=== PATIENT | female | born 1975 | race Caucasian/White ===

== ENCOUNTER 2016-10-07 15:27 | Emergency (ER) | payer OTHER ==
[2016-10-07] MEDS ORDERED: NUBAIN IM ONE (16:56)
[2016-10-07] MEDS ORDERED: PHENERGAN IM ONE (16:56)
--- NOTE | 2016-10-07 16:58 | PROVIDER DOCUMENTATION ---
HPI-Headache - General Chief Complaint: Headache Stated Complaint: MIGRAINE HEADACHE Time Seen by Provider: 10/07/16 16:52 Source: patient, family Allergies/Adverse Reactions: Patient Allergies Allergy/AdvReac Type Severity Reaction Status Date / Time No Known Allergies Allergy Verified 10/07/16 17:16 Home Medications: Home Medication List Medication Instructions Recorded Confirmed Last Taken Type Fluoxetine HCl [Prozac] 10 mg PO DAILY 10/07/16 10/07/16 10/06/16 History Sumatriptan [Imitrex] 25 mg PO PRN PRN 10/07/16 10/07/16 10/07/16 History Topiramate [Topamax] 200 mg PO DAILY 10/07/16 10/07/16 10/07/16 History - History of Present Illness-Headache Nature of Presenting Problem: 40 year old WF presents alone with c/o headache, onset this morning at 0200, it awoke her from sleep. the pain is left posterior side of her head and radiates to left eyebrow, dull, constant, with associated nausea, chills, and blurred vision to the left eye. pt reports a history of migraine BURR's since the age of 13. she reports this is her regular migraine without new signs/symptoms. pt reports she takes imitrex at home and this usually will resolve the headache. she reports taking the oral and injectable without relief. pt reports she just moved to this area and does not have a PMD. Headache Location: reports: parietal (left) Quality of Pain: reports: aching, dull Severity: reports: mild Onset/Duration: reports: 4-6 hours ago Timing: reports: still present, constant, getting worse Headache Context: reports: nothing. denies: head injury Headache History: reports: frequent headaches, history of migraines Any recent trauma/injury?: reports: none. denies: minor, major, to head, to neck Headache severity at the maximum: moderate Preceding Symptoms: reports: visual disturbances. denies: scotoma, aura(s), typical of previous aura(s) Headache Exacerbated by:: reports: light, noise, movement, position Modifying Factors: improves with: nothing. worse with: analgesics Associated Symptoms: reports: fever/chills, nausea, vision changes. denies: dizziness, confusion, fatigue, loss of consciousness, numbness in legs/feet, paresthesia, seizures, sleepy, slurred speech, trouble walking, vomiting, weakness Similar Symptoms Previously?: Yes Recently seen or treated by another doctor?: No Review of Systems - Adult - REVIEW OF SYSTEMS - ADULT Constitutional: reports: no symptoms reported. denies: chills, fever, fatique Eyes: reports: see HPI, blurred vision (left). denies: discharge, decreased vision, double vision, eye pain Ears, Nose, Mouth & Throat: reports: no symptoms reported. denies: ear discharge, ear pain, nose pain, loose teeth, throat pain, throat swelling Cardiovascular: reports: no symptoms reported. denies: chest pain, palpitations , syncope Respiratory: reports: no symptoms reported. denies: chronic cough, cough, shortness of breath, wheezing Gastrointestinal: reports: no symptoms reported. denies: abdominal pain, diarrhea, nausea, vomiting Genitourinary: reports: no symptoms reported. denies: dysuria, hematuria, urgency Musculoskeletal: reports: no symptoms reported. denies: bone pain, joint pain, joint swelling, neck pain Integumentary: reports: no symptoms reported. denies: hives, rash, skin sores/ ulcer Neurological: reports: see HPI, headache/migraines. denies: ataxia, dizziness/ vertigo, loss of balance, numbness, paresthesia, seizure, slurred speech, syncope, tremors Psychiatric: reports: see HPI, depression Endocrine: reports: no symptoms reported Hematologic/Lymphatic: reports: no symptoms reported Allergic/Immunologic: reports: no symptoms reported All Other Systems: Reviewed and Negative Past History - Adult - PAST MEDICAL HISTORY-ADULT Review of Records: reports: Old Records Reviewed, Nursing Assessment Review, Medications Reviewed, Social history reviewed & non-contributory. Major Childhood Illnesses: reports: denies history Cardiovascular: reports: denies history Respiratory: reports: denies history Gastrointestinal: reports: denies history Obstetrical/Gynecological: reports: denies history Genitourinary: reports: denies history Musculoskeletal: reports: denies history Neurological: reports: headaches/migraines Endocrine/Immune: reports: denies history Other Conditions: reports: denies history - FAMILY HISTORY Family History: reviewed, not pertinent - SOCIAL HISTORY Smoking: denies, quit greater than 1 year, cigarettes Substance Use: none/never Alcohol Use Frequency: never Physical Exam- Neurological - Physical Exam-Neuro Initial Vital Signs Reviewed: Yes General Appearance: appears well, alert, mild distress. negative: no apparent distress, moderate distress, severe distress, lethargic, slow to respond, obtunded, combative Eye Exam: bilateral eye: normal inspection, PERRL, EOMI HENMT: normocephalic/atraumatic, moist mucous membranes, normal ENT inspection, TMs normal, pharynx normal. negative: pharyngeal erythema, tonsillar exudate, TM abnormal, TM obscurred by cerumen, frontal tenderness, maxillary tenderness Head Injury: no evidence of injury. negative: active bleeding, Wang's Sign, contusions, ecchymosis, flap, lacerations, raccoon eyes, swelling, tenderness Neck: non-tender, full range of motion, supple, normal inspection. negative: C- spine tenderness, limited range of motion, tender lateral, tender midline Respiratory: chest non-tender, lungs clear, normal breath sounds, no pleuratic chest pain, no respiratory distress, no accessory muscle use. negative: respiratory distress, decreased breath sounds, accessory muscle use, crackles, rales, rhonchi, stridor, wheezing Cardiovascular: normal peripheral pulses, regular rate, rhythm Abdominal Exam: normal bowel sounds, non tender, soft Lymphatic: no adenopathy. negative: cervical node tenderness Peripheral Pulses: radial (R): 3+, radial (L): 3+, dorsalis-pedis (R): 3+, dorsalis-pedis (L): 3+ Extremity: normal range of motion, non-tender, normal gait, normal inspection, no pedal edema, no calf tenderness, normal capillary refill cotton weigher Exam: normal hearing, normal speech, PERRL. negative: abnormal eye position , abnormal gag reflex, abnormal pupil position, abnormal speech, facial asymmetry, facial droop, facial paresthesias, facial weakness, gaze palsy, tongue deviation to R, tongue deviation to L Coordination/Gait: normal gait, negative Romberg's sign. negative: positive Romberg's sign, abnormal gait Motor/Sensory: no motor deficit, no sensory deficit, no pronator drift. negative: pronator drift (R), pronator drift (L), sensory deficit, weak motor strength RUE, weak motor strength LUE, weak motor strength RLE, weak motor strength LLE Neurologic: cotton weigher II-XII nml as tested, grossly normal, no motor/sensory deficits , negative romberg's sign. negative: abnormal cerebellar tests, abnormal cotton weigher II -XII, abnormal gait, aphasia, EOM palsy, facial droop, focal weakness, motor weakness, sensory deficit, positive romberg's sign Integumentary: normal color, normal turgor. negative: petechiae, purpura, rash Psych/Mental Status: normal mood/affect, normal thought content, normal thought process, oriented x 3 - Glascow Coma Scale Best Eye Response: (4) open spontaneously Best Verbal Response: (5) oriented Best Motor Response: (6) obeys commands Total Glascow Score: 15 Progress - PLAN OF CARE/RESULTS Progress/Plan/Lab Results: Orders Category Date Time Status HEAD W/O CONTRAST [CT] Stat Exams 10/07/16 16:56 Draft Diphenhydramine [Benadryl] Med 10/07/16 18:25 Discontinued 50 mg IM NOW ONE Nalbuphine [Nubain] Med 10/07/16 16:56 Discontinued 20 mg IM NOW ONE Promethazine [Phenergan] Med 10/07/16 16:56 Discontinued 25 mg IM NOW ONE Vital Signs - 24 hr 10/07/16 10/07/16 15:47 18:49 Temperature 98.1 F Pulse Rate 81 72 Respiratory 18 16 Rate Blood Pressure 117/61 115/72 O2 Sat by Pulse 100 100 Oximetry - CT/MRI 1 CT Study: Head Impression: Normal Departure - Departure Time of Disposition Order: 18:20 DIAGNOSIS: Migraine Qualifiers: Migraine type: unspecified Status migrainosus presence: without status migrainosus Intractability: not intractable Qualified Code(s): G43.909 - Migraine, unspecified, not intractable, without status migrainosus Disposition: HOME 01 Certified Medical Emergency: Emergent Condition: Stable Additional Instructions: Referral to Dr. Luu for primary care and Dr. Hernandez for your migraine headaches. ED Follow Up Instructions: You have been treated by a care provider in the Emergency Department. These instructions are being provided to you so you can have an understanding of how to care for yourself upon discharge. Upon discharge from the Emergency Department, you are responsible for making arrangements for follow-up care by a physician of your choice. Take all prescribed medications as directed. Return to the Emergency Department immediately for any new or worsening symptoms. You may call the Physician Referral phone number at [phone] to obtain a list of Physicians who are taking new patients. Referrals: None,PCP [Primary Care Provider] - Maritza Luu MD [STAFF PHYSICIAN] - Gab Hernandez III, MD [STAFF PHYSICIAN] - Forms: Return to School/Parent Work Instructions: Migraine Headache Attestation - Physician/ FAYE Attestation Patient care was provided by Advanced Practice Provider:: Yes Advanced Practice Provider:: Leila Rivera Advanced Practice Provider documentation review:: The Mid-level provider documentation, treatment plan and medical decision making was reviewed by the physician who agrees with all treatment and medical decision making by the MLP.
[2016-10-07] MEDS ORDERED: BENADRYL IM ONE (18:25)
[2016-10-07 18:50] VITALS: BP 115/72
--- NOTE | 2016-10-08 08:03 | Diag Imaging Result Document ---
PROCEDURE NAME: HEAD W/O CONTRAST - 10/07/2016 CT BRAIN WITHOUT CONTRAST. DOSE REDUCTION PROTOCOL: FINDINGS: No parenchymal hemorrhage. No epidural or subdural hematoma. No subarachnoid hemorrhage. No mass identified on this noncontrasted exam. No hydrocephalus. No sinus opacification. IMPRESSION: No hemorrhage. Negative brain CT without contrast. A preliminary report was given at 5:59 p.m.
== END 2016-10-07 18:50 | disposition home or self-care (01) ==
LOC: ED 15:27
DX: G43.909 Migraine, unspecified, not intractable, without status migrainosus (principal); R51 Headache; R50.9 Fever, unspecified; R11.0 Nausea; H53.8 Other visual disturbances; H53.9 Unspecified visual disturbance; F32.9 Major depressive disorder, single episode, unspecified; Z87.891 Personal history of nicotine dependence; Z79.899 Other long term (current) drug therapy
CPT/HCPCS: 70450; J1200; J2300; J2550

== ENCOUNTER 2018-09-26 13:08 | Inpatient (IN) ==
[2018-09-26] MEDS ORDERED: NICODERM PATCH TD PRN (13:49)
[2018-09-26] MEDS ORDERED: SENOKOT PO PRN (13:49)
[2018-09-26] MEDS ORDERED: SINEMET 25/100 PO PRN (13:49)
[2018-09-26] MEDS ORDERED: DESYREL PO PRN (13:49)
[2018-09-26] MEDS ORDERED: MAALOX PLUS LIQUID PO PRN (13:49)
[2018-09-26] MEDS ORDERED: D5W 1,000 ML IV PRN (13:49)
[2018-09-26] MEDS ORDERED: TUBERSOL ID ONE (13:49)
[2018-09-26] MEDS ORDERED: MOTRIN PO PRN (13:49)
[2018-09-26] MEDS ORDERED: PHENOBARBITAL IV PRN (13:49)
[2018-09-26] MEDS ORDERED: BENTYL PO PRN (13:49)
[2018-09-26] MEDS ORDERED: TYLENOL PO PRN (13:49)
[2018-09-26] MEDS ORDERED: DULCOLAX PR PRN (13:49)
[2018-09-26] MEDS ORDERED: IMODIUM PO PRN (13:49)
[2018-09-26 15:02] LABS: HEMATOCRIT 38.6 % (37.0-47.0); HEMOGLOBIN 12.6 g/dL (12.0-16.0); MCH 27.3 PG (27-31); MCHC 32.6 g/dL (33-37); MCV 83.7 FL (81-99); MPV 10.7 FL (7.4-10.4); RBC 4.61 XMIL (4.2-5.4); RDW 12.8 % (11.5-14.5); WBC 6.07 X1000 (4.8-10.8)
[2018-09-26 15:30] LABS: INR 0.92; PROTIME 12.8 Seconds (11.0-16.0)
[2018-09-26 15:35] LABS: AMYLASE 34 U/L (20-200); LIPASE 30 U/L (13-60)
[2018-09-26 15:37] LABS: AGAP 11; ALBUMIN 4.2 g/dL (3.5-5.0); ALKALINE PHOSPHATASE 77 U/L (32-104); BUN 6 mg/dL (8-22); CALCIUM 8.7 mg/dL (8.8-10.2); CHLORIDE 104 mmol/L (98-107); COSMO 278; CREATININE 0.7 mg/dL (0.5-0.9); ESTIMATED GFR > 60; GLUCOSE 90 mg/dL (70-104); GOT 12 U/L (10-30); GPT 8 U/L (10-36); SODIUM 141 mmol/L (136-145); TCO2 27 mmol/L (25-35); TOTAL PROTEIN 6.9 g/dL (6.3-8.3)
[2018-09-26] MEDS: ATARAX PO PRN (16:45)
[2018-09-26] MEDS: LIBRIUM PO PRN ×2 (16:45→21:37)
[2018-09-26] MEDS: ROBAXIN PO PRN (21:37)
[2018-09-26] MEDS: SEROQUEL PO PRN (21:37)
[2018-09-27 01:24] LABS: URINE SOURCE VOIDED
[2018-09-27 01:43] LABS: BILIRUBIN URINE NEGATIVE (NEGATIVE); BLOOD URINE NEGATIVE (NEGATIVE); CLARITY CLEAR (CLEAR); COLOR YELLOW; GLUCOSE URINE NEGATIVE (NEGATIVE); KETONE URINE NEGATIVE (NEGATIVE); LEUKOCYTES URINE TRACE (NEGATIVE); NITRITE URINE NEGATIVE (NEGATIVE); PROTEIN URINE NEGATIVE (NEGATIVE); UROBILINOGEN URINE NORMAL
[2018-09-27 01:50] LABS: URINE BACTERIA 4+ /HFP; URINE EPITHELIAL CELLS <10 /HPF (<10); URINE RBC <10 /HPF (<10); URINE WBC <10 /HPF (<10)
[2018-09-27 01:52] LABS: UR AMPHETAMINES QUAL NONE DETECTED (NONE DETECT); UR BARBITUATES QUAL NONE DETECTED (NONE DETECT); UR BENZODIAZEPIN QUAL PRESUMPTIVE POSITIVE (NONE DETECT); UR CANNABINOIDS QUAL NONE DETECTED (NONE DETECT); UR COCAINE QUAL NONE DETECTED (NONE DETECT); UR METHADONE QUAL NONE DETECTED (NONE DETECT); UR METHAMPHETAMINE QUAL NONE DETECTED (NONE DETECT); UR OPIATES QUAL NONE DETECTED (NONE DETECT); UR OXYCODONE QUAL NONE DETECTED (NONE DETECT); UR PCP QUAL NONE DETECTED (NONE DETECT); UR PROPOXYPHENE QUAL NONE DETECTED (NONE DETECT); UR TCA QUAL PRESUMPTIVE POSITIVE (NONE DETECT)
[2018-09-27] MEDS: PROTONIX PO SCH ×2 (06:42→08:30)
[2018-09-27] MEDS: ZOFRAN IV PRN ×2 (08:30→22:49)
[2018-09-27] MEDS: VITAMIN B-1 PO SCH (08:30)
[2018-09-27] MEDS: THERA M PLUS PO SCH (08:30)
[2018-09-27] MEDS: FOLIC ACID PO SCH (08:30)
[2018-09-27] MEDS: SUBOXONE 2 MG/0.5 MG FILM SL SCH ×2 (08:34→20:38)
[2018-09-27] MEDS: ATARAX PO PRN (13:44)
[2018-09-27] MEDS: LIBRIUM PO PRN (18:09)
--- NOTE | 2018-09-27 18:17 | PROGRESS NOTE ---
DATE: 09/27/2018 SUBJECTIVE: Patient notes that she is feeling a little bit better. Still does not feel well. Still having muscle aches and myalgias. Still having some nausea and sweating. PHYSICAL EXAMINATION: Vital Signs: Reviewed and stable. General: She is awake, alert. She is in no current distress. HEENT: Normocephalic. Neck: Supple. Cardiovascular: Regular rate. Chest: Clear. Abdomen: Soft. Extremities: Moves all extremities. ASSESSMENT: 1. Nausea and vomiting. 2. Abdominal pain. 3. Myalgias. 4. Paresthesias. 5. Opiate abuse withdrawal and stabilization. 6. Chronic migraines. 7. Posttraumatic stress disorder. 8. Fibromyalgia. 9. Opiate abuse withdrawal and stabilization. PLAN: We will continue patient on fentanyl patch. We will add Subutex twice a day today. Once we get her under control, then we can begin weaning down and hopefully off Subutex. I certainly feel as though the manic depressive-type symptoms had more to do with her hallucinations and psychiatric symptoms when she stops than the actual stopping of fentanyl created. We will continue to follow. cc: Eriberto Dash MD MTDD
[2018-09-27] MEDS: SEROQUEL PO PRN (20:38)
[2018-09-27] MEDS: WELLBUTRIN XL PO SCH (20:38)
[2018-09-27] MEDS: LEXAPRO PO SCH (20:38)
[2018-09-27] MEDS: ZOFRAN ODT PO PRN (23:06)
[2018-09-28] MEDS: PROTONIX PO SCH (07:14)
[2018-09-28] MEDS: THERA M PLUS PO SCH (09:26)
[2018-09-28] MEDS: SUBOXONE 2 MG/0.5 MG FILM SL SCH ×2 (09:26→21:35)
[2018-09-28] MEDS: FOLIC ACID PO SCH (09:26)
[2018-09-28] MEDS: VITAMIN B-1 PO SCH (09:26)
[2018-09-28] MEDS: ZOFRAN ODT PO PRN (09:26)
[2018-09-28] MEDS: ZOFRAN IV PRN ×3 (11:17→21:36)
[2018-09-28] MEDS: ROBAXIN PO PRN (14:52)
[2018-09-28] MEDS ORDERED: TORADOL IV ONE (18:37)
[2018-09-28] MEDS: LEXAPRO PO SCH (21:35)
[2018-09-28] MEDS: WELLBUTRIN XL PO SCH (21:35)
[2018-09-28] MEDS: SEROQUEL PO PRN (21:35)
[2018-09-29] MEDS: ATARAX PO PRN ×2 (00:01→09:48)
[2018-09-29] MEDS: ROBAXIN PO PRN ×2 (01:00→13:46)
[2018-09-29] MEDS: ZOFRAN IV PRN ×6 (01:00→22:38)
[2018-09-29] MEDS: PROTONIX PO SCH (06:40)
--- NOTE | 2018-09-29 08:09 | PROGRESS NOTE ---
DATE: 09/28/2018 SUBJECTIVE: Patient seen and examined by myself on the . She notes that overall she is feeling a little bit better, although still having muscle aches, still feels as though she is having withdrawal symptoms. She did have a migraine today which is not uncommon. Denies any hallucinations. OBJECTIVE: Vital Signs: Temperature 97.4, pulse 70s, respiratory 20, BP 90 systolic. General: Patient is awake, alert, currently in no respiratory distress. HEENT: Normocephalic. Neck: Supple. CV: Regular rate. Chest: Clear. Abdomen: Soft. Extremities: Moves all extremities. Neurologic: No changes. ASSESSMENT: 1. Nausea, vomiting. 2. Abdominal pain. 3. Myalgias. 4. Paresthesias. 5. Paroxysmal sweating. 6. Opiate abuse, withdrawal. PLAN: We will continue patient in the hospital. Continue Subutex. Hopefully over the next day or two, can begin weaning Subutex as the patient desires to go home medication-free. We will continue to follow further orders as needed. cc: Eriberto Dash MD
[2018-09-29] MEDS ORDERED: SUBUTEX SL SCH (09:00)
[2018-09-29] MEDS ORDERED: SUBOXONE 2 MG/0.5 MG FILM SL SCH (09:00)
[2018-09-29] MEDS: VITAMIN B-1 PO SCH (09:38)
[2018-09-29] MEDS: THERA M PLUS PO SCH (09:38)
[2018-09-29] MEDS: FOLIC ACID PO SCH (09:38)
[2018-09-29] MEDS: LIBRIUM PO PRN ×2 (11:59→17:45)
--- NOTE | 2018-09-29 18:34 | PROGRESS NOTE ---
DATE: 09/29/2018 SUBJECTIVE: Patient still has multiple complaints. She had a migraine yesterday. Still having nausea. Still having muscle aches. States she may feel better but she is unsure. States she is still having nausea, requiring IV medication. PHYSICAL EXAMINATION: Vital Signs: Reviewed. She is afebrile. Vital signs are stable. Blood pressure is stable. General: She is in no current distress. HEENT: Normocephalic. Neck: Supple. Cardiovascular: Regular rate. Chest: Clear. Abdomen: Soft, nondistended. Positive bowel sounds. Extremities: Moves all extremities. Neurologic: No focal changes. ASSESSMENT: 1. Nausea and vomiting. 2. Abdominal pain. 3. Myalgias. 4. Paresthesias. 5. Paroxysmal sweating. 6. Opiate abuse, withdrawal, and stabilization. 7. Chronic anxiety, depression, and bipolar. PLAN: We will continue the patient in the hospital. Will switch today to Subutex to see if this helps any better. Unfortunately, some of the patient's chronic psychiatric issues are coming to bear and creating some of her difficulty in stabilization and improvement. The patient still exhibits quite frequent manipulating behavior. She demanded that her IV be removed and then was upset that it was removed. States that she feels better with IV medicines, although all she is getting and Zofran which certainly has no euphoric affect but patient appears to achieve such an affect from Zofran. We will continue to decrease Subutex to 2 mg daily and decrease even further tomorrow. We will continue to attempt counseling and will follow. cc: Eriberto Dash MD
--- NOTE | 2018-09-29 18:40 | EKG Report ---
Test Performed on : 09/29/2018 6:34:35 PM Test Reason : CP Blood Pressure : / mmHG Vent. Rate : 082 BPM Atrial Rate : 082 BPM P-R Int : 140 ms QRS Dur : 074 ms QT Int : 362 ms P-R-T Axes : 064 075 061 degrees QTc Int : 422 ms Normal sinus rhythm. Low voltage QRS Borderline ECG No previous ECGs available Confirmed by Jake Díaz MD ([id number]) on 10/01/2018 7:40:19 AM
[2018-09-29] MEDS: LEXAPRO PO SCH (20:56)
[2018-09-29] MEDS: WELLBUTRIN XL PO SCH (20:56)
[2018-09-29] MEDS: SEROQUEL PO PRN (20:56)
[2018-09-30] MEDS: PROTONIX PO SCH (06:29)
[2018-09-30] MEDS: ZOFRAN IV PRN ×3 (09:03→13:05)
[2018-09-30] MEDS: FOLIC ACID PO SCH (09:04)
[2018-09-30] MEDS: THERA M PLUS PO SCH (09:04)
[2018-09-30] MEDS: VITAMIN B-1 PO SCH (09:04)
[2018-09-30] MEDS ORDERED: NS 1,000 ML IV ONE (09:18)
--- NOTE | 2018-09-30 10:23 | PROGRESS NOTE ---
DATE: 09/30/2018 SUBJECTIVE: The patient had an eventful night last night. Her blood pressures dropped into the upper 80s systolic. This morning she is feeling lightheaded. She has not really been drinking well. She states she has been nauseated, and the only thing that works is IV Phenergan. However, she has requested that her IV be taken out which seems to be counterproductive. PHYSICAL EXAMINATION: Vital Signs: Reviewed. She is currently stable with blood pressure upper 80s to low 90s. Afebrile. Heart rate is 74. General: Patient is awake and alert. She appears to be in no respiratory distress. She appears to be non-ill appearing. HEENT: Normocephalic. Neck: Supple. CARDIOVASCULAR: Regular rate. Chest: Clear. Abdomen: Soft. Extremities: Moves all extremities. ASSESSMENT: Hypotension. Unclear as to the cause as she received 1 dose of Subutex early in the morning, and has not received any sedatives since that time. However, we will stop all p.r.n., as well as Suboxone and will follow. Hopefully, after IV fluid bolus if her blood pressure improves, she can be discharged home. cc: Eriberto Dash MD
--- NOTE | 2018-09-30 10:23 | HISTORY AND PHYSICAL ---
CHIEF COMPLAINT: Nausea, vomiting. HISTORY OF PRESENT ILLNESS: Patient is a 42-year-old female who presented to [facility] secondary to nausea, vomiting, abdominal pain, myalgias, hypertension. The patient notes that she has tried to stop the Duragesic patch. She apparently had been on 75 mg, decreased to 50, then get to 25. However, when she attempted to decrease down to 12.5, she noted that she had hallucinations with suicidal intent for approximately a week. States she had auditory and visual hallucinations. PAST MEDICAL HISTORY: Migraine, social anxiety, post traumatic stress disorder, fibromyalgia, chronic pain, manic depression, frequent falling. SOCIAL HISTORY: Patient is . She is on disability. Lives at home in [place]. MEDICATIONS: 1. Wellbutrin 300. 2. Lexapro 20. 3. Stilwell. 4. Imitrex. 5. Phenergan. 6. Trazodone. ALLERGIES: Penicillin. REVIEW OF SYSTEMS: CINA score is 12 secondary to abdominal pain, cramping, myalgias, tremors, auditory and visual hallucinations, suicidal ideations although she notes this is improved. History of blackouts, multiple falls, myalgias. Had a history of suicide attempt in 2016. SUBSTANCE ABUSE HISTORY: The patient has never been in substance abuse treatment before. She does have a history of migraines and was placed on fentanyl a year ago and has been trying to wean down. As noted, had some type of odd paradoxical reaction where weaning down created auditory and visual hallucinations. She started using opiates as early as age 11. Currently is taking Stilwell and fentanyl. FAMILY HISTORY: Noncontributory. PHYSICAL EXAMINATION: VITAL SIGNS: Reviewed and stable. GENERAL: Patient is awake, alert. She is in no current respiratory distress. HEENT: Normocephalic. NECK: Supple. CARDIOVASCULAR: Regular rate. CHEST: Clear. ABDOMEN: Soft. EXTREMITIES: Moves all extremities. ASSESSMENT: 1. Nausea and vomiting. 2. Abdominal pain. 3. Auditory and visual hallucinations. 4. Posttraumatic stress disorder. 5. Chronic depression. 6. Chronic migraines. 7. Fibromyalgia. 8. Chronic pain. PLAN: We will admit patient to the hospital as she has been on fentanyl. We will attempt Subutex. Patient desires to go home completely off of all medicines. Discussed with her that it certainly may be partially her chronic psychiatric illnesses that are creating some of the auditory and visual hallucinations but typically alcohol withdrawal would cause this but not opiate withdrawal. We will continue to follow. Certainly concerning that she may have taken other substances that she has not been forthcoming with. We will continue to follow. cc: Eriberto Dash MD
[2018-09-30 13:19] VITALS: BP 109/59
--- NOTE | 2018-10-02 16:14 | DISCHARGE SUMMARY ---
ADMISSION DATE: 09/26/2018 DISCHARGE DATE: 09/30/2018 DISCHARGE DIAGNOSIS: 1. Nausea and vomiting. 2. Abdominal pain. 3. Myalgias. 4. Paresthesias. 5. Chronic anxiety and depression. 6. Hypotension. 7. Opiate abuse, withdrawal, and stabilization. CONSULTATIONS: None. PROCEDURES: None. BRIEF HOSPITAL COURSE: The patient is a 42-year-old female who presented to the hospital with an odd complaint of hallucinations when she attempted to stop the fentanyl patch as opposed to hallucinations with increasing the patch. She stated that she wants to be off of all opiates. Therefore, her hospital course was prolonged secondary to attempting to totally wean her off of everything. Unfortunately, her chronic anxiety and depression also caused a somewhat longer hospital stay. She was admitted to the hospital and was placed on buprenorphine at a low dose. She initially stated that it made her feel better and then stated that it made her feel worse. We switched to buprenorphine only, Subutex, and continued to attempt to wean. On the day prior to discharge, her blood pressures dropped into the 80s and 90s systolic. This was roughly 18 hours after she had received buprenorphine. Unlikely that buprenorphine was the cause of her blood pressure drop that long afterwards. She, however, was noted to not be drinking very well. She was given 1 IV fluid bolus. Her blood pressures improved. DISPOSITION: Thankfully, the patient is awake and alert. Currently, she is in no distress. She is now able to ambulate without any difficulties after receiving IV fluid bolus. All of her withdrawal symptoms seemed to have improved if not completely been alleviated. She will be discharged home on no current medication. We did not start naltrexone, even though it would assist with preventing from using opiates. She has recently been on higher doses of fentanyl. We certainly were concerned that the naltrexone would worsen withdrawal symptoms. Greater than 30 minutes were spent in total care. cc: Eriberto Dash MD
== END 2018-09-30 17:25 | disposition home or self-care (01) | DRG 897 ==
LOC: P.DIRADM 13:10 → P.MEDSURG 13:48
PROVIDERS: ADMIT Family Medicine; ATTEND Family Medicine
CPT/HCPCS: 80053; 80104; 80301; 80305; 80307; 80320; 81001; 82055; 82150; 82550; 83690; 84484; 84703; 85027; 85610; 86580; 93005; 93010; A9270; G0431; G0434; G0477; G0480; G6040; J1885; J2405; J7030